=== PATIENT | female | born 1965 | race Two or more races ===

== ENCOUNTER 2021-12-04 12:13 | Emergency (ER) | payer MEDICAID ==
[~2021-12-04] VITALS: Ht 152.4 cm; Wt 54.3 kg
[2021-12-04 12:49] VITALS: BP 151/80
[2021-12-04 13:42] LABS: Basophils # (auto) 0 10 ^3/uL (0-0.2); Basophils % (auto) 0.8 % (0.0-2.0); Eosinophils # (auto) 0 10 ^3/uL (0-0.8); Eosinophils % (auto) 0.5 % (0.0-7.0); Hematocrit 39.6 % (36.0-46.0); Hemoglobin 12.9 g/dL (12.2-16.2); Lymphocytes % (auto) 33.1 % (10.0-50.0); Mean Corpuscular Hemoglobin 26.9 pg (28.0-32.0); Mean Corpuscular Hgb Conc. 32.7 g/dL (32.0-36.0); Mean Corpuscular Volume 82.3 fL (80.0-100.0); Monocytes # (auto) 0.4 10 ^3/uL (0-1.3); Monocytes % (auto) 6.4 % (0.0-12.0); Neutrophils # (auto) 3.5 10 ^3/uL (1.6-8.6); Neutrophils % (auto) 59.2 % (37.0-80.0); Nucleated Red Blood Cells % 0.1 %; Red Blood Cells 4.81 10^6/uL (4.0-5.20); Red Cell Distribution Width 13.2 % (11.8-14.3); White Blood Cell 5.9 10^3/uL (4.4-10.8)
[2021-12-04 13:54] LABS: BUN/Creatinine Ratio 20.6; Calcium 9.2 mg/dL (8.5-10.1)
[2021-12-04] MEDS ORDERED: ACET-1080 PO (15:05)
[2021-12-04] MEDS ORDERED: METH750T22 PO (15:05)
== END 2021-12-04 15:07 | disposition home or self-care (01) ==
LOC: ER 12:18
DX: S29.012A Strain of muscle and tendon of back wall of thorax, initial encounter (principal); F41.1 Generalized anxiety disorder; X58.XXXA Exposure to other specified factors, initial encounter; Y93.89 Activity, other specified; Y92.89 Other specified places as the place of occurrence of the external cause; Y99.8 Other external cause status
CPT/HCPCS: 36415; 71045; 80048; 84484; 85025

== ENCOUNTER 2022-04-07 13:33 | Emergency (ER) | payer MEDICAID ==
[~2022-04-07] VITALS: Ht 167.6 cm; Wt 55.0 kg
[~2022-04-07 13:33] MED LIST: ACET-1080 PO; METH750T22 PO
[2022-04-07 16:14] VITALS: BP 147/97
[2022-04-07] MEDS ORDERED: IBUP600T27 PO (16:16)
== END 2022-04-07 16:23 | disposition home or self-care (01) ==
LOC: ER 13:33
DX: S63.502A Unspecified sprain of left wrist, initial encounter (principal); Z79.1 Long term (current) use of non-steroidal anti-inflammatories (NSAID); Z79.899 Other long term (current) drug therapy; X50.1XXA Overexertion from prolonged static or awkward postures, initial encounter; Y93.89 Activity, other specified; Y92.89 Other specified places as the place of occurrence of the external cause; Y99.0 Civilian activity done for income or pay
CPT/HCPCS: 73110

== ENCOUNTER 2023-06-23 17:14 | Emergency (ER) | payer MEDICAID, OTHER ==
[~2023-06-23] VITALS: Ht 149.9 cm; Wt 57.7 kg
[~2023-06-23 17:14] MED LIST changes: +IBUP-1454 PO; +METH-1182 PO; -METH750T22 PO
[2023-06-23 19:06] VITALS: BP 142/71; PULSE 79; RESP 14; TEMP 98; O2SAT 97
[2023-06-23] MEDS ORDERED: IBUP1TAB5 PO (20:51)
[2023-06-23] MEDS ORDERED: BACL10TA PO (20:51)
[2023-06-23] MEDS: HYDROcodone-ACET 5/325MG TAB PO ONE (21:01)
== END 2023-06-23 21:15 | disposition home or self-care (01) ==
LOC: ER 17:14
DX: S13.4XXA Sprain of ligaments of cervical spine, initial encounter (principal); S23.3XXA Sprain of ligaments of thoracic spine, initial encounter; S00.03XA Contusion of scalp, initial encounter; S20.219A Contusion of unspecified front wall of thorax, initial encounter; M75.32 Calcific tendinitis of left shoulder; M75.31 Calcific tendinitis of right shoulder; Z79.1 Long term (current) use of non-steroidal anti-inflammatories (NSAID); Z79.899 Other long term (current) drug therapy; V89.2XXA Person injured in unspecified motor-vehicle accident, traffic, initial encounter; Y93.89 Activity, other specified; Y92.410 Unspecified street and highway as the place of occurrence of the external cause; Y99.8 Other external cause status
CPT/HCPCS: 70450; 71250; 72125